=== PATIENT | male | born 1975 | race African-American/Black ===

== ENCOUNTER 2020-07-27 11:13 | Inpatient (IN) | payer MEDICAID ==
[~2020-07-27] VITALS: Ht 182.9 cm; Wt 175.1 kg
--- NOTE | 2020-07-27 11:37 | NUR ---
[facility] TO ER BED 5. AAOX3. NOT IN RESP DISTRESS. TRACH ON T MASK. BROUGHT IN FOR R CHEST PAIN STARTED THIS MORNING AT 0900. 8/10 SHARP NON RADIATING AGGREVATED BY MOVEMENT. PT WAS GIVEN 3 SPRAYS OF NITRO BY EMS AND ASPIRIN 162MG. WAS AT THE BEDSIDE FOR EVAL. ORDERS RECEIVED, NOTED AND CARRIED OUT. IV LINE ALREADY ESTABLISHED HEALTH CARE MARKETING SPECIALIST BY EMS. EKG DONE BY EMT
[2020-07-27] MEDS ORDERED: ATOR80TA PO (11:48)
[2020-07-27] MEDS ORDERED: [UNRECOGNIZED DRUG - CODE] INH (11:48)
[2020-07-27] MEDS ORDERED: FERR325T23 PO (11:48)
[2020-07-27] MEDS ORDERED: SERT100T PO (11:48)
[2020-07-27] MEDS ORDERED: RIVA10TA PO (11:48)
[2020-07-27] MEDS ORDERED: DOCU100C36 PO (11:48)
[2020-07-27] MEDS ORDERED: CHOL500062 PO (11:48)
[2020-07-27] MEDS ORDERED: CARV6.252 PO (11:48)
[2020-07-27] MEDS ORDERED: LISI-607 PO (11:48)
[2020-07-27] MEDS ORDERED: BUSP5TAB3 PO (11:48)
[2020-07-27] MEDS ORDERED: OLAN10TA3 PO (11:48)
[2020-07-27] MEDS ORDERED: FURO40TA5 PO (11:48)
[2020-07-27 11:57] LABS: BASOPHILS # (AUTO) 0.1 /CMM (0.0-0.2); BASOPHILS % (AUTO) 0.9 % (0.0-2.0); EOSINOPHILS % (AUTO) 7.3 % (0.0-6.0); HEMATOCRIT 41 % (39-51); HEMOGLOBIN 12.6 g/dL (13.5-17.5); LYMPHOCYTES # (AUTO) 1.5 /CMM (0.8-4.8); LYMPHOCYTES % (AUTO) 17.3 % (20.0-44.0); MEAN CORPUSCULAR HGB CONC 31 g/dl (31.0-36.0); MEAN CORPUSCULAR VOLUME 84 fL (80-96); MONOCYTES # (AUTO) 0.5 /CMM (0.1-1.30); MONOCYTES % (AUTO) 5.8 % (2.0-12.0); NEUTROPHILS # (AUTO) 6.1 /CMM (1.8-8.9); NEUTROPHILS % (AUTO) 68.7 % (43.0-81.0); PLATELET COUNT (AUTO) 322 /CMM (150-450); RED BLOOD CELL COUNT(AUTO) 4.91 MIL/uL (4.5-6.0); WHITE BLOOD COUNT (AUTO) 8.8 K/uL (4.3-11.0)
[2020-07-27 12:04] LABS: CALCIUM, SERUM 9.2 mg/dL (8.5-10.1); CREATININE 1.6 mg/dL (0.6-1.3); POTASSIUM 4.4 mmol/L (3.5-5.1)
--- NOTE | 2020-07-27 12:05 | NUR ---
CHECKED PT, HE VERBALIZED THAT HE IS NOT EXPERIENCING CHEST PAIN AT THIS TIME. MADE AWARE
[2020-07-27 12:10] LABS: ALBUMIN 2.9 g/dL (3.4-5.0); BILIRUBIN,DIRECT 0.1 mg/dL (0.0-0.2); BILIRUBIN,TOTAL 0.3 mg/dL (0.2-1.0)
--- NOTE | 2020-07-27 12:18 | NUR ---
RT AT BEDSIDE FOR EVAL.
[2020-07-27] MEDS ORDERED: LEVOFLOXACIN 750 MG /D5W 150ML 150 ML IV ONE (12:30)
[2020-07-27] MEDS ORDERED: PIPERACILLIN /TAZOBACTAM 3.375 G in IV D5W 50 ML IV ONE (12:30)
--- NOTE | 2020-07-27 13:08 | NUR ---
BLOOD CULTURE DRAWN AND SENT TO LAB
[2020-07-27] MEDS ORDERED: ACETAMINOPHEN 325 MG TABLET PO PRN (14:00)
[2020-07-27] MEDS ORDERED: TEMAZEPAM 15 MG CAPSULE PO PRN (14:00)
[2020-07-27] MEDS ORDERED: MAG HYDROX/AL HYDROX/SIMETH 30 ML UDC PO PRN (14:00)
[2020-07-27] MEDS ORDERED: ONDANSETRON HCL/PF 4 MG/2 ML VIAL IVP PRN (14:00)
[2020-07-27] MEDS ORDERED: MORPHINE SULFATE INJ 2 MG/ML DISP.SYRIN IV PRN (14:00)
[2020-07-27] MEDS ORDERED: MAGNESIUM HYDROXIDE 30 ML UDC PO PRN (14:00)
[2020-07-27] MEDS ORDERED: Z GUARD REMEDY 2 OZ OINT TP PRN (14:00)
--- NOTE | 2020-07-27 15:14 | NUR ---
BED CHANGED TO 204
--- NOTE | 2020-07-27 15:28 | NUR ---
REPORT GIVEN TO FILIPPO MONGE FOR EMILE
--- NOTE | 2020-07-27 15:41 | NUR ---
PT TRANSPORTED TO UNIT ON [facility] WITH EMT AND RN AT BEDSIDE W/ ACLS PROTOCOL. NAD NOTED DURING TRANSPORT. PT AMBULATED FROM [facility] TO HIS BED ON STEADY GAIT W/O ASSIST
--- NOTE | 2020-07-27 16:00 | NUR ---
TIRE REPAIR MECHANIC NOTES RECEIVED TRANSFER FROM ER. PATIENT ON TRACH IN MEDICALLY STABLE CONDITION. O2 AT 5 LPM, A/O X4. WILL CONTINUE TO MONITOR PATIENT.
--- NOTE | 2020-07-27 18:24 | NUR ---
SHADOW GRAPH WEIGHT OPERATOR NOTES PATIENT REFUSES SKIN ASSESSMENT AT THIS TIME. WILL TRY LATER.
[2020-07-27] MEDS: busPIRone 5 MG TABLET PO SCH (18:27)
[2020-07-27] MEDS: DOCUSATE SODIUM 100 MG CAPSULE PO SCH (18:27)
[2020-07-27] MEDS: FERROUS SULFATE (325 MG) 325 MG/TAB TABLET PO SCH (18:27)
[2020-07-27] MEDS: CARVEDILOL 6.25 MG TABLET PO SCH (18:27)
--- NOTE | 2020-07-27 19:07 | NUR ---
JOB RECRUITER CLOSING NOTES PATIENT IN BED, ASLEEP. PATIENT ON TRACH WITH 5 LMP OF OXYGEN; BREATHING IS EVEN AND UNLABORED; NO SOB PRESENT. TELE MONITOR WITH A CURRENT READING OF A-FIB 88 BPM. NO S/S OF PAIN SUCH MOANING, FACIAL GRIMACING OR GUARDING. R HAND G #20 IV ACCESS PRESENT AND INTACT. SAFETY PRECAUTIONS IN PLACE; BED IN LOW POSITION AND LOCKED, RAILS UP X2, CALL LIGHT WITHIN REACH. WILL ENDORSE TO RETORT FEEDER GROUND BONE NURSE.
[2020-07-27] MEDS: IPRATROPIUM NEB FS 0.5 MG/2.5 ML AMPUL.NEB IH SCH (19:30)
[2020-07-27] MEDS: ALBUTEROL FS 2.5 MG/0.5 ML VIAL.NEB NEB SCH (19:30)
[2020-07-27 20:00] VITALS: BP 144/74
--- NOTE | 2020-07-28 00:21 | NUR ---
MS2/TELE CALLED [employer], , SPOKE TO TAD BELTRAN. PER RUBY PATIENT CAN TAKE ALL MEDS BY MOUTH WHOLE PILLS, AND EATS REGULAR DIET.
[2020-07-28] MEDS: ATORVASTATIN 40 MG TABLET PO SCH ×2 (00:34→21:22)
[2020-07-28] MEDS: IPRATROPIUM NEB FS 0.5 MG/2.5 ML AMPUL.NEB IH SCH ×4 (01:30→19:30)
[2020-07-28] MEDS: ALBUTEROL FS 2.5 MG/0.5 ML VIAL.NEB NEB SCH ×4 (01:30→19:30)
--- NOTE | 2020-07-28 03:39 | NUR ---
RT Nebulized tx not given due to current Covid-19 rule out status.
[2020-07-28 04:42] VITALS: BP 161/93
--- NOTE | 2020-07-28 06:11 | NUR ---
MS2/TELE SUCTIONED TRACH X 3 ALREADY, GURGLING SOUND DOES NOT GO AWAY, CALLED RT YESSICA TO CHECK. RT WILL COME.
[2020-07-28 07:04] LABS: BASOPHILS # (AUTO) 0.1 /CMM (0.0-0.2); BASOPHILS % (AUTO) 0.6 % (0.0-2.0); EOSINOPHILS % (AUTO) 6.5 % (0.0-6.0); HEMATOCRIT 42 % (39-51); LYMPHOCYTES # (AUTO) 0.7 /CMM (0.8-4.8); LYMPHOCYTES % (AUTO) 8.1 % (20.0-44.0); MEAN CORPUSCULAR HGB CONC 31 g/dl (31.0-36.0); MEAN CORPUSCULAR VOLUME 84 fL (80-96); MONOCYTES # (AUTO) 0.4 /CMM (0.1-1.30); MONOCYTES % (AUTO) 5.2 % (2.0-12.0); NEUTROPHILS # (AUTO) 6.8 /CMM (1.8-8.9); NEUTROPHILS % (AUTO) 79.6 % (43.0-81.0); PLATELET COUNT (AUTO) 312 /CMM (150-450); RED BLOOD CELL COUNT(AUTO) 5.05 MIL/uL (4.5-6.0); WHITE BLOOD COUNT (AUTO) 8.6 K/uL (4.3-11.0)
[2020-07-28 07:20] LABS: CREATININE 1.3 mg/dL (0.6-1.3); MAGNESIUM 1.9 mg/dL (1.8-2.4); PHOSPHORUS 4.1 mg/dL (2.5-4.9); POTASSIUM 4.3 mmol/L (3.5-5.1)
--- NOTE | 2020-07-28 07:30 | NUR ---
TELE/RN OPENING NOTE Patient resting in bed, A&O x 4. Denies any pain/discomfort at this time. Breathing even and non-labored on 5L oxygen via trach, FIO2 28. No respiratory or cardiac distress noted. On tele monitor, reading SR 91. IV access noted on R hand #20 g, patent and intact, and flushing well. G-tube in place, clamped. Sensation from all peripheral extremities intact. Bed locked to its lowest position, side rails x 2 up, call light in hand. Will continue to monitor closely.
[2020-07-28 07:31] LABS: THYROID STIMULATING HORMONE 0.871 uIU/mL (0.358-3.74)
[2020-07-28] MEDS: DOCUSATE SODIUM 100 MG CAPSULE PO SCH ×2 (08:45→16:33)
[2020-07-28] MEDS: OLANZAPINE 10 MG TABLET PO SCH (08:46)
[2020-07-28] MEDS: FERROUS SULFATE (325 MG) 325 MG/TAB TABLET PO SCH ×2 (08:46→16:34)
[2020-07-28] MEDS: SERTRALINE HCL 50 MG TABLET PO SCH (08:46)
[2020-07-28] MEDS: busPIRone 5 MG TABLET PO SCH ×2 (08:46→16:33)
[2020-07-28] MEDS: LISINOPRIL (5MG) 5 MG TABLET PO SCH (08:46)
[2020-07-28] MEDS: FUROSEMIDE 40 MG TABLET PO SCH (08:47)
[2020-07-28] MEDS: CARVEDILOL 6.25 MG TABLET PO SCH ×2 (08:47→16:34)
[2020-07-28] MEDS: CHOLECALCIFEROL 1,000 UNIT TABLET (VIT D3) PO SCH (08:47)
[2020-07-28] MEDS: HYDROCODONE/APAP 5/325MG TABLET PO PRN (08:59)
--- NOTE | 2020-07-28 09:30 | NUR ---
TELE/RN NOTE Monitoring patient's breathing and respirations, saturation at 93%. Suctioned x 3, gurgling sounds still present. Will continue to monitor.
--- NOTE | 2020-07-28 10:04 | NUR ---
TELE/RN NOTE Patient is anxious, constantly redirected and reassured, wants to be suctioned constantly even when no secretions are present. Sinus tachy with PVCs 110 noted, notified MD. Ordered xanax 0.25 BID PRN for anxiety. Will continue to monitor.
--- NOTE | 2020-07-28 10:20 | NUR ---
TELE/RN NOTE Administered xanax 0.25 mg PO PRN for anxiety, will continue to monitor patient closely.
[2020-07-28] MEDS ORDERED: ALPRAZOLAM 0.25 MG TABLET PO PRN (10:30)
--- NOTE | 2020-07-28 11:25 | NUR ---
TELE/RN NOTE Patient pulled out blankenship suctioning connection, notified RT. No respiratory distress noted. Will continue to monitor.
[2020-07-28 12:41] LABS: ABG BASE EXCESS 2.1 mmol/L; ABG OXYGEN SATURATION 97.5 % (92.0-98.5); ABG PCO2 52.8 mmHg (35.0-45.0); ABG PH 7.354 (7.350-7.450); ABG PO2 99.1 mmHg (75.0-100.0); AaDO2 38.2 mmHg; COHb 0.9 % (0.5-1.5); MetHb 0.1 % (0.0-1.5); O2Hb 96.5 % (94.0-97.0); SITE, ABG Left Radial; VENT MODE, BG 5L CA 28%
[2020-07-28] MEDS: RIVAROXABAN 10 MG TABLET PO SCH (16:34)
--- NOTE | 2020-07-28 19:00 | NUR ---
TELE/RN OPENING NOTE Patient sitting up in bed, A&O x 4. No complaints of any pain/discomfort at this time. Breathing even and non-labored on 5L oxygen via trach, FIO2 28. No respiratory or cardiac distress noted. On tele monitor, reading SR 80s. IV access noted on R hand #20 g, patent and intact, and flushing well. G-tube in place, clamped. Sensation from all peripheral extremities intact. Fall precautions maintained. Will endorse to cnc machinist 2nd shift nurse.
--- NOTE | 2020-07-28 19:30 | NUR ---
TELE/RN OPENING NOTES RECEIVED PATIENT IN BED RESTING. PATIENT HAS TRACH SHILEY #6 FIO2 28% 5L OXYGEN TOLERATING WELL. PATIENT IS IN NOT SIGNS OF DISTRESS. NO SOB OR RESPIROATROY DISTRESS NOTED. TELE READING SR 80S AT THIS TIME. GTUBE IS IN PLACE CLAMPED. PATIENT HAS IV ACCESS ON RIGHT HAND #20G INTACT. SAFETY MEASURES ARE IN PLACE, BED IS LOCKED AND PLACED IN THE LOW POSITION, SIDE RAILS UP X 2. CALL LIGHT IS IN EASY REACH OF PATIENT. WILL CONTINUE TO MONITOR THROUGH OUT SHIFT.
--- NOTE | 2020-07-28 19:40 | NUR ---
CORRECTION: TELE/RN CLOSING NOTE Patient sitting up in bed, A&O x 4. No complaints of any pain/discomfort at this time. Breathing even and non-labored on 5L oxygen via trach, FIO2 28. No respiratory or cardiac distress noted. On tele monitor, reading SR 80s. IV access noted on R hand #20 g, patent and intact, and flushing well. G-tube in place, clamped. Sensation from all peripheral extremities intact. Fall precautions maintained. Will endorse to load out person nurse.
[2020-07-28 20:00] VITALS: BP_SYST 155; BP_DIAS 81; BP_DIAS 87
[2020-07-29] VITALS: BP 149/78
[2020-07-29] MEDS: IPRATROPIUM NEB FS 0.5 MG/2.5 ML AMPUL.NEB IH SCH ×4 (00:27→19:16)
[2020-07-29] MEDS: ALBUTEROL FS 2.5 MG/0.5 ML VIAL.NEB NEB SCH ×4 (00:27→19:16)
[2020-07-29 04:00] VITALS: BP 144/93
--- NOTE | 2020-07-29 06:30 | NUR ---
TELE/RN CLOSING NOTES PATIENT IN BED RESTING WATCHING TV. PATIENT HAS TRACH ALTAGRACIA #6 FIO2 28% 5L OXYGEN TOLERATING WELL. PATIENT TOLERATED SUCTION WELL DURING SHIFT PRN. PATIENT IS IN NO SIGNS OF DISTRESS. NO SOB OR RESPIRATORY DISTRESS NOTED. TELE READING AFIB 70S AT THIS TIME. GTUBE IS IN PLACE CLAMPED. PATIENT HAS IV ACCESS ON RIGHT HAND #20G INTACT SL. ALL PATIENT NEEDS HAVE BEEN MET DURING SHIFT. SAFETY MEASURES ARE IN PLACE, BED IS LOCKED AND PLACED IN THE LOW POSITION, SIDE RAILS UP X 2. CALL LIGHT IS IN EASY REACH OF PATIENT. WILL ENDORSE CARE TO DAY SHIFT.
[2020-07-29 06:42] LABS: BASOPHILS % (AUTO) 0.2 % (0.0-2.0); EOSINOPHILS % (AUTO) 2.1 % (0.0-6.0); HEMATOCRIT 36 % (39-51); HEMOGLOBIN 11.9 g/dL (13.5-17.5); LYMPHOCYTES # (AUTO) 0.9 /CMM (0.8-4.8); LYMPHOCYTES % (AUTO) 20.1 % (20.0-44.0); MEAN CORPUSCULAR HGB CONC 34 g/dl (31.0-36.0); MEAN CORPUSCULAR VOLUME 90 fL (80-96); MONOCYTES # (AUTO) 0.5 /CMM (0.1-1.30); MONOCYTES % (AUTO) 12.6 % (2.0-12.0); NEUTROPHILS # (AUTO) 2.8 /CMM (1.8-8.9); PLATELET COUNT (AUTO) 187 /CMM (150-450); RED BLOOD CELL COUNT(AUTO) 3.95 MIL/uL (4.5-6.0); WHITE BLOOD COUNT (AUTO) 4.3 K/uL (4.3-11.0)
--- NOTE | 2020-07-29 07:21 | NUR ---
TELE/RN OPENING NOTES RECEIVED PATIENT IS ON BED AWAKE, ALERT AND ORIENTED X4. PATIENT IN NO APPARENT RESPIRATORY DISTRESS NOTED. DENIES PAIN AT THIS TIME. TELE MONITOR IN PLACED AFIB WITH PVC 87 BPM. WILL CONTINUE TO MONITOR.
--- NOTE | 2020-07-29 07:30 | NUR ---
RN CLOSING NOTE PATIENT HAS NO S/S OF DISTRESS, IS ASYMPTOMATIC A FIB, IS ON TELE MONITOR, TRACH #6 ALTAGRACIA WITH 5L O2, FO2 28%, PATIENT SPEAKS, A/O X4, G TUBE STILL IN PLACE, ORDER TO REMOVE WHEN PATIENT TOLERATES 50% OF DIET, PLAN IS TO REMOVE IN THE MORNING SO THAT 24HRS OF OBSERVATION DONE, AMBULATES, L AC IV, ECHOCARDIOGRAM DONE TODAY. WILL HAND OFF TO SENIOR QA ENGINEER RN.
[2020-07-29 07:34] LABS: CALCIUM, SERUM 8.8 mg/dL (8.5-10.1); CREATININE 0.6 mg/dL (0.6-1.3); PHOSPHORUS 2.9 mg/dL (2.5-4.9); POTASSIUM 3.8 mmol/L (3.5-5.1)
[2020-07-29] MEDS: OLANZAPINE 10 MG TABLET PO SCH (08:48)
[2020-07-29] MEDS: FERROUS SULFATE (325 MG) 325 MG/TAB TABLET PO SCH ×2 (08:48→16:48)
[2020-07-29] MEDS: DOCUSATE SODIUM 100 MG CAPSULE PO SCH ×2 (08:48→16:48)
[2020-07-29] MEDS: SERTRALINE HCL 50 MG TABLET PO SCH (08:48)
[2020-07-29] MEDS: busPIRone 5 MG TABLET PO SCH ×2 (08:49→16:49)
[2020-07-29] MEDS: CHOLECALCIFEROL 1,000 UNIT TABLET (VIT D3) PO SCH (08:49)
[2020-07-29] MEDS: FUROSEMIDE 40 MG TABLET PO SCH (08:49)
[2020-07-29] MEDS: CARVEDILOL 6.25 MG TABLET PO SCH ×2 (08:51→17:02)
[2020-07-29] MEDS: LISINOPRIL (5MG) 5 MG TABLET PO SCH (08:52)
[2020-07-29] MEDS: HYDROCODONE/APAP 5/325MG TABLET PO PRN ×2 (09:01→22:10)
--- NOTE | 2020-07-29 10:01 | NUR ---
RT NOTE HHN TX NOT GIVEN DUE TO PENDING COVID-19 SWAB. NO RESPIRATORY DISTRESS NOTED AT THIS TIME. Addendum: 07/29/20 at 1002 by BRIAN ZAMAN RT Amended: Links added.
--- NOTE | 2020-07-29 11:30 | NUR ---
TELE/RN NOTES DR. PATEL ORDER TO REMOVE THE G TUBE ONCE THE PATIENT TOLERATE THE FOOD WELL. NOTED AND CARRIED OUT.
[2020-07-29] MEDS ORDERED: IV NS 0.9% 250 ML IV ONE (13:45)
[2020-07-29] MEDS ORDERED: CT SWABBABLE VALVE TRANS SET 1 EA INFUS.SET MC ONE (13:45)
[2020-07-29] MEDS ORDERED: IOHEXOL-350 100 ML VIAL IV ONE (13:45)
--- NOTE | 2020-07-29 14:52 | NUR ---
TELE/RN NOTES PATIENT IS IN THE CAT LAB. PATIENT WILL GO STRAIGHT TO [facility]. GIVE REPORT TO GIGI BARKLEY FOR EMILE.
[2020-07-29] MEDS ORDERED: METOPROLOL TARTRATE INJ 5 MG/5 ML AMPUL ONE (15:15)
[2020-07-29] MEDS: METOPROLOL TARTRATE INJ 5 MG/5 ML AMPUL IVP PRN ×4 (15:20→15:35)
[2020-07-29] MEDS ORDERED: NITROGLYCERIN 0.4 MG/TAB BOTTLE SL ONE (15:30)
[2020-07-29 16:00] VITALS: BP 114/85
--- NOTE | 2020-07-29 16:15 | NUR ---
RECEIVED PATIENT IN A WHEELCHAIR ACCOMPANIED BY 2 STAFF. SITUATED IN ROOM 103 ALERT ORIENTED X4. HAS TRACH AND ON COOL AEROSOL. TOLERATING WELL. NO SIGNS OF DISTRESS. HAS GT CLAMPED. HOOKED TO TELE MONITOR. AFIB 70 BPM. PATIENT IS AMBULATORY ABLE TO TRANSFER SELF TO BED. NO CO PAIN OR DISCOMFORT AT THIS TIME. HAS R HAND #20 AND LAC #18 FLUSHES WELL. PATIENT IS LOOKING FOR SPEAKING VALVE. UNABLE TO LOCATE FROM BELONGINGS. HE IS UPSET BECAUSE IT APPEARS TO HAVE BEEN LOST. SAFETY MEASURES REINFORCED. CALL LIGHT WITHIN REACH. WILL CONT TO MONITOR.
[2020-07-29] MEDS: RIVAROXABAN 10 MG TABLET PO SCH (16:51)
--- NOTE | 2020-07-29 16:55 | NUR ---
PATIENT REMOVED R HAND IV ACCDG TO HIM HE HAS ANOTHER LINE AND DOES NOT NEED IT. HE PUT SOME PAPER TOWEL AND USED SOME OLD TAPE. NOTED WITH UNCONTROLLED BLEEDING. REINFORCED DRESSING WITH NEW GAUZE AND TAPE. APPLIED PRESSURE.
--- NOTE | 2020-07-29 17:03 | NUR ---
RT NOTE PT TRANSFERRED TO FIRST FLOOR [facility]. PT PLACED ON NEW AEROSOL SET UP. NO RESPIRATORY NOTED AT THIS TIME. Addendum: 07/29/20 at 1705 by BRIAN ZAMAN RT Amended: Links added.
[2020-07-29 20:00] VITALS: BP 121/71
--- NOTE | 2020-07-29 20:50 | NUR ---
RN TD NURSE NOTES, RECEIVED PATIENT FROM FILIPPO FREDERICK FOR CONTINUATION OF CARE, ALERT ORIENTED X4, HAS TRACH AND ON COOL AEROSOL. TOLERATING WELL WITH OPTIMAL O2 SAT LEVEL, BREATHING EVEN AND UNLABORED, .NO SIGNS OF DISTRESS NOTED, ON TELE MONITOR. AFIB 70S BPM AT THIS TIME, R HAND #20 AND LAC #18GT PATENT AND INTACT, GT IN PLACED CLAMPED, WILL BE REMOVE TOMORROW, ALL SAFETY, MEASURES IN PLACED, CALL LIGHT WITHIN REACH, WILL CONTINUE TO MONITOR CLOSELY.
--- NOTE | 2020-07-29 21:53 | NUR ---
[facility]/RN RECEIVED PATIENT AT 1930 IN BED APPEAR SLEEPING, APPEAR COMFORTABLE, WITH TRACH TO COOL AEROSOL, NO SIGNS OF DISTRESS NOTED, CALL LIGHT IN REACH. PATIENT WAS ENDORSED TO ANOTHER RN FOR CONTINUITY OF CARE AT 2044 IN STABLE CONDITION.
[2020-07-29] MEDS: ATORVASTATIN 40 MG TABLET PO SCH (22:09)
--- NOTE | 2020-07-30 | NUR ---
RN TD NOTES, PATIENT REFUSED VITAL SIGNS A THIS TIME, EXPLAINED RISKS AND BENEFITS X3, STILL REFUSED, WILL CONTINUE TO MONITOR CLOSELY.
[2020-07-30] MEDS: IPRATROPIUM NEB FS 0.5 MG/2.5 ML AMPUL.NEB IH SCH ×4 (01:11→20:08)
[2020-07-30] MEDS: ALBUTEROL FS 2.5 MG/0.5 ML VIAL.NEB NEB SCH ×4 (01:11→20:08)
[2020-07-30] MEDS: HYDROCODONE/APAP 5/325MG TABLET PO PRN ×3 (03:36→14:22)
[2020-07-30 04:00] VITALS: BP 130/78
--- NOTE | 2020-07-30 06:35 | NUR ---
RN TD NURSE CLOSING NOTES, PATIENT AWAKE ALERT ORIENTED X4, WITH TRACH IN PLACE AND ON COOL AEROSOL,SUCTIONING PROVIDED NEEDED THROUGHOUT THE NIGHT, TOLERATING WELL WITH OPTIMAL O2 SAT LEVEL, BREATHING EVEN AND UNLABORED, .NO SIGNS OF DISTRESS NOTED, ON TELE MONITOR, CONTINUE AFIB 70S BPM, PAIN MEDICATION ADMINISTERED 2X DURING THE SHIFT, NO SIGNIFICANT CHANGE IN CONDITION, ALL SAFETY MEASURES IN PLACED, CALL LIGHT WITHIN REACH, WILL ENDORSE CONTINUITY OF CARE TO ONCOMING NURSE.
[2020-07-30 06:44] LABS: BASOPHILS # (AUTO) 0.1 /CMM (0.0-0.2); BASOPHILS % (AUTO) 0.6 % (0.0-2.0); EOSINOPHILS % (AUTO) 5.1 % (0.0-6.0); HEMATOCRIT 42 % (39-51); HEMOGLOBIN 13.1 g/dL (13.5-17.5); LYMPHOCYTES % (AUTO) 10.8 % (20.0-44.0); MEAN CORPUSCULAR HGB CONC 31 g/dl (31.0-36.0); MEAN CORPUSCULAR VOLUME 82 fL (80-96); MONOCYTES # (AUTO) 0.6 /CMM (0.1-1.30); MONOCYTES % (AUTO) 6.8 % (2.0-12.0); NEUTROPHILS # (AUTO) 6.9 /CMM (1.8-8.9); NEUTROPHILS % (AUTO) 76.7 % (43.0-81.0); PLATELET COUNT (AUTO) 269 /CMM (150-450)
[2020-07-30 06:55] LABS: CREATININE 1.4 mg/dL (0.6-1.3); MAGNESIUM 2.1 mg/dL (1.8-2.4); PHOSPHORUS 4.4 mg/dL (2.5-4.9); POTASSIUM 4.3 mmol/L (3.5-5.1)
[2020-07-30 08:00] VITALS: BP 128/86
--- NOTE | 2020-07-30 08:00 | NUR ---
RN OPENING NOTES, RECEIVED PATIENT FROM NIGHT RN FOR CONTINUATION OF CARE, ALERT ORIENTED X4, HAS TRACH AND ON COOL AEROSOL. TOLERATING WELL WITH OPTIMAL O2 SAT LEVEL, BREATHING EVEN AND UNLABORED, .NO SIGNS OF DISTRESS NOTED, ON TELE MONITOR. AFIB 70S BPM AT THIS TIME, R HAND #20 AND LAC #18GT PATENT AND INTACT, GT IN PLACED CLAMPED, WILL BE REMOVE TODAY, ALL SAFETY, MEASURES IN PLACED, CALL LIGHT WITHIN REACH, WILL CONTINUE TO MONITOR CLOSELY.
[2020-07-30] MEDS ORDERED: LISINOPRIL (5MG) 5 MG TABLET PO SCH (09:00)
[2020-07-30] MEDS: DOCUSATE SODIUM 100 MG CAPSULE PO SCH ×2 (09:05→17:53)
[2020-07-30] MEDS: busPIRone 5 MG TABLET PO SCH ×2 (09:05→17:53)
[2020-07-30] MEDS: FERROUS SULFATE (325 MG) 325 MG/TAB TABLET PO SCH ×2 (09:07→17:53)
[2020-07-30] MEDS: FUROSEMIDE 40 MG TABLET PO SCH (09:07)
[2020-07-30] MEDS: CARVEDILOL 6.25 MG TABLET PO SCH ×2 (09:07→17:53)
[2020-07-30] MEDS: CHOLECALCIFEROL 1,000 UNIT TABLET (VIT D3) PO SCH (09:09)
[2020-07-30] MEDS: OLANZAPINE 10 MG TABLET PO SCH (09:10)
[2020-07-30] MEDS: SERTRALINE HCL 50 MG TABLET PO SCH (09:10)
[2020-07-30 12:00] VITALS: BP 128/97
[2020-07-30 16:00] VITALS: BP 123/88
[2020-07-30] MEDS: RIVAROXABAN 10 MG TABLET PO SCH (17:54)
[2020-07-30 20:00] VITALS: BP 114/70
[2020-07-30] MEDS: ATORVASTATIN 40 MG TABLET PO SCH (21:32)
[2020-07-31] VITALS: BP 141/81
[2020-07-31] MEDS: IPRATROPIUM NEB FS 0.5 MG/2.5 ML AMPUL.NEB IH SCH ×3 (01:11→13:48)
[2020-07-31] MEDS: ALBUTEROL FS 2.5 MG/0.5 ML VIAL.NEB NEB SCH ×3 (01:11→13:48)
[2020-07-31 04:00] VITALS: BP 143/101
[2020-07-31] MEDS: HYDROCODONE/APAP 5/325MG TABLET PO PRN ×3 (04:52→12:47)
[2020-07-31 06:01] LABS: BASOPHILS # (AUTO) 0.1 /CMM (0.0-0.2); BASOPHILS % (AUTO) 0.7 % (0.0-2.0); EOSINOPHILS % (AUTO) 4.8 % (0.0-6.0); HEMATOCRIT 43 % (39-51); HEMOGLOBIN 13.2 g/dL (13.5-17.5); LYMPHOCYTES # (AUTO) 0.9 /CMM (0.8-4.8); MEAN CORPUSCULAR HGB CONC 31 g/dl (31.0-36.0); MEAN CORPUSCULAR VOLUME 83 fL (80-96); MONOCYTES # (AUTO) 0.5 /CMM (0.1-1.30); MONOCYTES % (AUTO) 6.1 % (2.0-12.0); NEUTROPHILS # (AUTO) 6.2 /CMM (1.8-8.9); NEUTROPHILS % (AUTO) 77.4 % (43.0-81.0); PLATELET COUNT (AUTO) 245 /CMM (150-450); RED BLOOD CELL COUNT(AUTO) 5.17 MIL/uL (4.5-6.0)
--- NOTE | 2020-07-31 06:05 | NUR ---
RN notes In bed, resting comfortably with no distress noted. Breathing even and unlabored. On room air, tolerating well. Opens eyes, no eye tracking noted, non verbal. No physical manifestation of pain or discomfort. Needs attended. Kept clean and dry. Will endorse to next shift for continuation of care.
[2020-07-31 06:51] LABS: CALCIUM, SERUM 8.9 mg/dL (8.5-10.1); CREATININE 1.4 mg/dL (0.6-1.3); MAGNESIUM 2.1 mg/dL (1.8-2.4); PHOSPHORUS 4.8 mg/dL (2.5-4.9); POTASSIUM 4.4 mmol/L (3.5-5.1)
--- NOTE | 2020-07-31 07:10 | NUR ---
PT ALERT AND ORIENTED X4. AWAKE IN BED. HOB ELEVATED. RESPIRATION EVEN AND UNLABORED. DENIES PAIN OR SOB. COOL AEROSOL BIOMASK ON AND ATTACHED TO HUMIDIFICATION. ON TELE AFIB 70S. AMBULATORY AND STABLE. SKIN INTACT. R HAND IV FLUSHED AND PATENT, DRESSING INTACT. WILL F/U ON GT REMOVAL. WILL MONITOR FOR CHEST PAIN OR SOB. ALL HOSPITAL POLICY SAFETY PRECAUTIONS IMPLEMENTED.
[2020-07-31 08:00] VITALS: BP 146/102
[2020-07-31] MEDS: CARVEDILOL 6.25 MG TABLET PO SCH ×2 (08:45→17:00)
[2020-07-31] MEDS: FERROUS SULFATE (325 MG) 325 MG/TAB TABLET PO SCH ×3 (08:45→17:00)
[2020-07-31] MEDS: SERTRALINE HCL 50 MG TABLET PO SCH (08:45)
[2020-07-31] MEDS: OLANZAPINE 10 MG TABLET PO SCH (08:45)
[2020-07-31] MEDS: CHOLECALCIFEROL 1,000 UNIT TABLET (VIT D3) PO SCH (08:45)
[2020-07-31] MEDS: DOCUSATE SODIUM 100 MG CAPSULE PO SCH ×3 (08:45→17:00)
[2020-07-31] MEDS: FUROSEMIDE 40 MG TABLET PO SCH (08:46)
[2020-07-31] MEDS: busPIRone 5 MG TABLET PO SCH ×3 (08:46→17:00)
[2020-07-31 12:00] VITALS: BP 116/69
[2020-07-31 16:00] VITALS: BP 102/62
[2020-07-31] MEDS: RIVAROXABAN 10 MG TABLET PO SCH ×2 (16:34→17:00)
--- NOTE | 2020-07-31 17:20 | NUR ---
PT REFUSES 1700 MEDICATION XARELTO, BUSPIRONE, COLACE, FERROUS SULFATE. EDUCATED PATIENT ON REASONS FOR MEDICATION. PATIENT STATED, "I DON'T WANT IT BECAUSE I AM TIRED AND JUST WANT TO REST". CARVEDILOL HELD PT BP WAS CHECKED TWICE BP WAS 96/54. PT DENIES DIZZINESS OR ALOC. INSTRUCTED PT TO RISE SLOWLY FROM SEATED POSITION AND DANGLE LEGS BEFORE STANDING. PT VERBALIZED UNDERSTANDING.
--- NOTE | 2020-07-31 17:20 | NUR ---
DR FERRELL REMOVED GT IN BED. GT INTACT AND IN ONE PIECE. STOMA PINK, CLEAN, NO SIGNS OF EXCESS BLEEDING, OR SWELLING. PT DENIES PAIN. PICTURE TAKEN. COVERED IN GAUZE DRESSING. DR ORDERED NPO UNTIL STOMA CLOSES COMPLETELY. PT TOLERATED WELL.
--- NOTE | 2020-07-31 18:52 | NUR ---
PT AWAKE IN BED. HOB ELEVATED. RESPIRATION EVEN AND UNLABORED. DENIES PAIN OR SOB. COOL AEROSOL BIOMASK ON AND ATTACHED TO HUMIDIFICATION. ON TELE AFIB 70-90S. NO SIGNS OF DISTRESS DENIES PAIN OR SOB. SKIN INTACT. R HAND IV FLUSHED AND PATENT, DRESSING INTACT. GT STOMA NO SIGNS OF REDNESS OR SWELLING OR BLEEDING. DRESSING INTACT. ORDERS IMPLEMENTED AND DOCUMENTED GT REMOVAL PT RESPONSE. ALL HOSPITAL POLICY SAFETY PRECAUTIONS IMPLEMENTED. AWAITING DC. WILL ENDORSE TO PM RN FOR CONTINUATION OF CARE.
--- NOTE | 2020-07-31 19:45 | NUR ---
SPOKE WITH JERSON FROM [facility]. REPORT GIVEN.
--- NOTE | 2020-07-31 19:50 | NUR ---
RN NOTE PATIENT TO BE TRANSFERRED TO [facility]. PATIENT ID BAND CONFIRMED WITH TRANSPORTATION TEAM. REPORT GIVEN TO NELLA, IV LINE REMOVED ASEPTICALLY. PATIENT AO X4, AMBULATORY WITH MINIMAL ASSISTANCE. LATEST VS T 98.7 DEG, BP 117/82, HR 62, R 19, O2 SAT 95%. TRACH TO TPIECE IN PLACE. NO SIGN OF ACUTE DISTRESS. NO COMPLAINTS OF PAIN. PATIENT BELONGINGS CHECKED WITH TRANSPORT TEAM PRESENT. LEFT UNIT VIA GURNEY INSTABLE CONDITION. SAFFETY MAINTAINED. JERSON WITH [facility] NOTIFIED BY ELSA BARKLEY AT [phone].
[2020-07-31 20:00] VITALS: BP 117/82
== END 2020-07-31 20:00 | DRG 190 ==
LOC: ER 11:16 → TELE2 15:14 → TELE1 07-29 16:20 → TELE-TD 07-29 22:58 → TELE1 07-30 08:50
PROVIDERS: ADMIT Nurse Practitioner Acute Care; ATTEND Student in an Organized Health Care Education/Training Program
DX: I21.A1 Myocardial infarction type 2 (principal); I13.0 Hypertensive heart and chronic kidney disease with heart failure and stage 1 through stage 4 chronic kidney disease, or unspecified chronic kidney disease; I48.20 Chronic atrial fibrillation, unspecified; N17.0 Acute kidney failure with tubular necrosis; I50.9 Heart failure, unspecified; Z93.0 Tracheostomy status; E66.01 Morbid (severe) obesity due to excess calories; E78.5 Hyperlipidemia, unspecified; E11.22 Type 2 diabetes mellitus with diabetic chronic kidney disease; D68.69 Other thrombophilia; G47.33 Obstructive sleep apnea (adult) (pediatric); F31.9 Bipolar disorder, unspecified; N18.9 Chronic kidney disease, unspecified; Z79.01 Long term (current) use of anticoagulants; Z87.891 Personal history of nicotine dependence; J96.10 Chronic respiratory failure, unspecified whether with hypoxia or hypercapnia; Z68.43 Body mass index [BMI] 50.0-59.9, adult; Z93.1 Gastrostomy status; I25.110 Atherosclerotic heart disease of native coronary artery with unstable angina pectoris; Z71.3 Dietary counseling and surveillance
CPT/HCPCS: 31720; 36415; 36600; 71045-TC; 75574; 80048-TC; 80061-TC; 80076-TC; 83605-TC; 83735-TC; 84100-TC; 84443-TC; 84484-TC; 85025-TC; 85730-TC; 87040-TC; 87081-TC; 92526; 92611-TC; 93307-TC; 94640-TC; 94799-TC; A4623; A6403; A7526; G0378; J1956; J2270; J2543; J3490; J7050; J7060; L8501; Q9967; U0003